=== PATIENT | male | born 1940 | race Caucasian/White ===

== ENCOUNTER → 2024-01-04 10:38 | Outpatient (REF) | payer OTHER, SELFPAY | LOC: RAD 10:38 | PROVIDERS: ATTENDING PHYSICIAN Internal Medicine Cardiovascular Disease; FAMILY PHYSICIAN Internal Medicine | DX: I25.810 Atherosclerosis of coronary artery bypass graft(s) without angina pectoris (principal); I48.0 Paroxysmal atrial fibrillation; I35.0 Nonrheumatic aortic (valve) stenosis; I10 Essential (primary) hypertension | CPT/HCPCS: 93880 ==

== ENCOUNTER → 2024-02-15 08:51 | Outpatient (REF) | payer OTHER, SELFPAY ==
[2024-02-15 12:31] LABS: ALT (SGPT) 26 U/L (0-50); AST (SGOT) 31 U/L (17-59); Albumin 3.9 g/dl (3.5-5.0); Alkaline Phosphatase 117 U/L (38-126); Direct Bilirubin 0.3 mg/dl (0.0-0.4); Glucose 108 mg/dl (70-99); HDL Cholesterol 65 mg/dl; LDL Cholesterol, Calculated 37 mg/dl; Total Cholesterol 119 mg/dl (50-199); Total Protein 6.5 g/dl (6.3-8.2); Triglyceride 87 mg/dl (10-149); Very Low Density Lipoprotein 17 mg/dl (0-30)
[2024-02-15 14:27] LABS: Glycohemoglobin (HgbA1c) 6.7 % (4.0-5.6)
== END ==
LOC: HWLAB 08:51
PROVIDERS: ATTENDING PHYSICIAN Internal Medicine
DX: E11.9 Type 2 diabetes mellitus without complications (principal); E78.5 Hyperlipidemia, unspecified; I10 Essential (primary) hypertension; I25.810 Atherosclerosis of coronary artery bypass graft(s) without angina pectoris
CPT/HCPCS: 36415; 80061; 80076; 82947; 83036

== ENCOUNTER 2024-05-05 10:58 | Emergency (ER) | payer OTHER, SELFPAY ==
[2024-05-05 11:00] VITALS: BP 155/77
[2024-05-05 11:06] VITALS: BMI 30.7
--- NOTE | 2024-05-05 11:13 | ED.GENMED ---
History of Present Illness
General
Chief Complaint: Back Pain
Source: patient and ambulance crew
Exam Limitations: none
Time Seen by Provider: 05/05/24 11:12
Nursing documentation reviewed up to this point in time: agreed with
History of Present Illness
History of Present Illness:
83 yo male from home where he lives alone. Here for lower back pain past 2 days. Worse than his usual back pain as he tried to get OOB this a.m. H States after laying on stomach on sofa and reaching under a table to spackle an area on his wall when
he developed low back pain that has become increasingly worse. Mostly R lower back
PCP Dr. Haider prescribed Methocarbamol, last dose 3 a.m. Takes Gabapentin 1200 mg BID also, last dose last p.m.
x back surgery 2007, laminectomy L4-5 2010, spinal fusion with scar tissue removal again 2010. More recently 'cyst removed from my spine' by Dr. Acuña.
Hx of Neuropathy legs, CHF, CAD, DVT, no longer on Eliquis, HTN, HLD, [place] CABG, BPH, anxiety
Past History
Past History
ED Past Medical History: CAD, CHF, HTN, Hypercholesterolemia, TN, Psychiatric (Anxiety), Other (Neuropathy LEs, ), Other (BPH) and Other (chronic back pain)
ED Past Surgical History: Cardiac (CABG Triple bypass 12/07) and Orthopedic (back surgery)
Social History
Tobacco: Non-smoker
Alcohol: None
Drug: None
Personal:
Living: with family
Family History
Family History: Negative Early CAD
Review of Systems
Review of Systems
Allergies reviewed?: Yes
All Other Systems: ROS reviewed and negative except as documented in HPI and ROS
Constitutional: Denies fever
Respiratory: Denies trouble breathing
Cardiac: Denies chest pain
ABD/GI: Denies abdominal pain, nausea, diarrhea or constipated (had a normal BM today)
: Denies dysuria
Musculoskeletal: Reports back pain; Denies neck pain
Skin: Reports no symptoms
Neurological: Reports no symptoms
Phy Exam
Physical Exam
Physical Exam:
GENERAL: No acute distress. A&Ox3.
CONSTITUTIONAL: Afebrile.
EYES: clear, conjunctivae normal
ENMT: moist mucus membranes, Pharynx nl
RESPIRATORY: Regular respirations, nonlabored, lungs clear.
CARDIOVASCULAR: Regular rate and rhythm, + murmur, no rubs. Pedal pulses 2/4.
GI: Soft, nontender, normal BS
MUSCULOSKELETAL: Tender to palpate bilateral para lumbar areas, no spinal bony tenderness. Flexes each knee without aggravating back pain. SLR without aggravating back pain. Pain elicited when pt position from flat supine to raising back of
stretcher more than 45 degrees, mainly in right lower back. Moves with ease. Well perfused. Trace ankle edema.
SKIN: Warm, dry, pink
PSYCH: Normal mood and affect. Well kept, interactive and appropriate
NEUROLOGIC: Awake, alert and oriented. No focal neurological deficits. Strength 5/5 throughout.
Course
Orders/Labs/Results
Orders:
Orders
05/05/24 11:21
Complete Blood Count/With Diff Urgent
Comprehensive Metabolic Panel Urgent
05/05/24 11:26
Ketorolac [Toradol] 15 mg IV NOW STA
05/05/24 11:27
diazePAM [Valium Injection] 2 mg IV NOW STA
Lumbar Spine Complete, 4 View [CR Lumbar Spine Comp Min 4 Vw*] Urgent
Comment:
Reason For Exam: pain mid to R lower back
05/05/24 13:07
Dexamethasone Sod Phosphate [Decadron] 10 mg IV NOW STA
Abnormal Lab Results
05/05/24
11:21
RBC 4.15 L 10^6/uL
(4.70-6.10)
MCV 97.3 H fL
(80.0-94.0)
MCH 35.4 H pg
(27.0-31.0)
Absolute Lymphs (auto) 0.5 L 10^3/uL
(1.2-3.4)
Absolute Monos (auto) 1.0 H 10^3/uL
(0.1-0.6)
Neutrophils % 80.7 H %
(42.2-75.2)
Lymphocytes % 6.2 L %
(20.5-51.1)
Monocytes % 12.6 H %
(1.7-9.3)
Sodium 131 L mmol/L
(135-145)
Chloride 97 L mmol/L
(98-107)
BUN 21 H mg/dl
(9-20)
Glucose 167 H mg/dl
(70-99)
Total Bilirubin 3.1 H mg/dl
(0.2-1.3)
05/05/24 11:21
05/05/24 11:21
Vital Signs
Initial and Last Documented VS:
Initial Vital Signs
Temp Pulse Resp BP Pulse Ox
98.1 F 93 18 155/77 96
05/05/24 11:00 05/05/24 11:00 05/05/24 11:00 05/05/24 11:00 05/05/24 11:00
Last Documented Vital Signs
Temp Pulse Resp BP Pulse Ox
98.1 F 72 18 140/83 97
05/05/24 11:00 05/05/24 14:00 05/05/24 14:00 05/05/24 14:00 05/05/24 14:00
MDM/Problems Addressed
Differential Diagnosis Includes:
Low back strain
MDM/Problems Addressed:
83 yo male from home where he lives alone. Here for lower back pain past 2 days. Worse than his usual back pain as he tried to get OOB this a.m. States after laying on stomach on sofa and reaching under a table to spackle an area on his wall when
he developed low back pain that has become increasingly worse. Mostly R lower back
PCP Dr. Haider prescribed Methocarbamol, last dose 3 a.m. Takes Gabapentin 1200 mg BID also, last dose last p.m.
x back surgery 2007, laminectomy L4-5 2010, spinal fusion with scar tissue removal again 2010. More recently 'cyst removed from my spine' by Dr. Acuña
Hx of Neuropathy legs, CHF, CAD, DVT, no longer on Eliquis, HTN, HLD, [place] CABG, BPH, anxiety
Afebrile, NAD. Wearing back brace from home
1:00 PM:
Lumbar spine radiology report read: IMPRESSION:
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 There is intervertebral disc space narrowing and facet arthropathy throughout the lumbar spine, most pronounced at L1-L2 and L2-L3, where it is severe.
After Valium, Toradol and Decadron, patient out of bed and ambulating very well with his walker and even independently at times. Most of his pain is when he goes from sit to stand and vice versa.
He will follow-up with Dr. Acuña
Prescription for prednisone sent to his pharmacy
He does have tramadol at home to use if needed for pain
No sign of infection, no cauda equina.
Pt comfortable going home with son in law, son to come and stay with him for a couple of days
Chronic conditions affecting care: HTN, CAD and Other (chronic low back pain, previous low back surgery)
*Critical Care Note
Total Time (30-74mins, 75-104mins- exclusive of procedures): Not Applicable
ED Attending Note
-
Portions of this chart may have been created with voice recognition software.� Occasional wrong word or��sound alike� substitutions may have occurred due to the inherent limitations of voice recognition software.
Discharge Plan
Departure
Patient Disposition: Home (Routine Discharge)
Date of Disposition: 05/05/24
Time of Disposition: 13:59
Patient with high blood pressure during this ER visit?: No
Condition: Good
Discharge Problem:
Low back pain
Instructions: Low Back Pain (DC)
Prescriptions:
New
prednisone 20 mg tablet
40 mg PO DAILY Qty: 8 0RF
No Action
lorazepam 1 MG tablet
1 mg PO HS
Patient Comments:
12/03/2020: last filled 11/14/20, 180 tabs for 90 days from [facility]
aspirin 81 MG tablet,chewable
81 mg PO DAILY
L.acidoph, paracasei,B. lactis 1 EACH capsule
1 ea PO DAILY
tramadol 50 MG tablet
50 mg PO Q6HPRN PRN (Reason: moderate pain)
Patient Comments:
12/03/2020: last filled 09/23/20, 180 tabs for 30 days from [facility]
gabapentin 300 MG capsule
1,200 mg PO BID
ipratropium bromide 1 SPRAY spray,non-aerosol
1 spray intranasal HS
finasteride 5 MG tablet
5 mg PO DAILY
atorvastatin 80 MG tablet
80 mg PO QPM Qty: 30 2RF
acetaminophen 325 MG tablet
650 mg PO Q4HPRN PRN (Reason: mild pain,headache,temp >101F ) 0RF
metoprolol tartrate 12.5 MG tablet
12.5 mg PO BID Qty: 60 2RF
Referrals:
Gary Acuña MD [Active] - Next open appointment
UNKNOWN - PT NOT,INTERVIEWE [Unknown Provider] -
Activity Restrictions/Additional Instructions:
As we discussed, you may use Tylenol as well as your tramadol as needed for pain.
I sent a prescription to your pharmacy for prednisone, started tomorrow as you were given a dose of steroid here today
The steroids may take a day or 2 to kick in so you may not feel much relief couple days.
Call Dr. Acuña's office Tuesday morning and make next available appointment
Interventions
Interventions:
*Risk Screen - Suicide Last Done: 05/05/24 11:08
*General Assessment Last Done: 05/05/24 11:07
*Neglect/Abuse Screening Last Done: 05/05/24 11:08
ED- Fall Risk Assessment Last Done: 05/05/24 11:05
*ED COVID-19 Vaccine History Last Done: 05/05/24 11:07
*Nursing Disposition Last Done: 05/05/24 14:25
ED-Musculoskeletal Assessment Last Done: 05/05/24 11:05
Discharge Date and Time
Discharge Date/Time: 05/05/24 14:25
Print Language: VINCENTIAN
[2024-05-05 11:29] LABS: % Basophils 0.1 % (0-2); % Immature Granulocytes 0.4 % (0-0.5); % Lymphocytes 6.2 % (20.5-51.1); % Monocytes 12.6 % (1.7-9.3); % Neutrophils 80.7 % (42.2-75.2); Absolute Lymphocytes 0.5 10^3/uL (1.2-3.4); Absolute Neutrophils 6.4 10^3/uL (1.4-6.5); Hematocrit 40.4 % (39.0-52.0); Hemoglobin 14.7 g/dL (13.0-18.0); Mean Corp Hgb Conc. 36.4 g/dL (33.0-37.0); Mean Corpuscular Hgb 35.4 pg (27.0-31.0); Mean Corpuscular Volume 97.3 fL (80.0-94.0); Mean Platelet Volume 9.8 fL (7.4-10.4); Nucleated Red Blood Cells % 0 % (-); Platelet Count 161 10^3/uL (130-400); Red Blood Cell Count 4.15 10^6/uL (4.70-6.10); Red Cell Dist. Width 12.5 % (11.5-14.5); White Blood Cell Count 7.9 10^3/uL (4.8-10.8)
[2024-05-05] MEDS: TORADOL 15 MG IV (11:31)
[2024-05-05] MEDS: VALIUM INJECTION 2 MG IV (11:32)
[2024-05-05 11:47] LABS: ALT (SGPT) 26 U/L (0-50); AST (SGOT) 28 U/L (17-59); Albumin 4.1 g/dl (3.5-5.0); Alkaline Phosphatase 124 U/L (38-126); Blood Urea Nitrogen 21 mg/dl (9-20); Calcium 9.8 mg/dl (8.4-10.2); Carbon Dioxide 24 mmol/L (22-30); Chloride 97 mmol/L (98-107); Estimated Creatinine Clearance 92 ml/min; Glucose 167 mg/dl (70-99); Potassium 3.9 mmol/L (3.5-5.1); Sodium 131 mmol/L (135-145); Total Bilirubin 3.1 mg/dl (0.2-1.3); Total Protein 6.6 g/dl (6.3-8.2); eGFR > 60.00
[2024-05-05 12:00] VITALS: BP 143/74
[2024-05-05] MEDS: DECADRON 10 MG IV (13:20)
[2024-05-05 14:00] VITALS: BP 140/83
== END 2024-05-05 14:25 | disposition home or self-care (01) ==
LOC: EMR 10:58
PROVIDERS: Registered Nurse; EMERGENCY PHYSICIAN Emergency Medicine; FAMILY PHYSICIAN Internal Medicine
DX: M54.50 Low back pain, unspecified (principal); G62.9 Polyneuropathy, unspecified; I25.10 Atherosclerotic heart disease of native coronary artery without angina pectoris; M47.816 Spondylosis without myelopathy or radiculopathy, lumbar region; M48.061 Spinal stenosis, lumbar region without neurogenic claudication; I11.0 Hypertensive heart disease with heart failure; I50.9 Heart failure, unspecified; E78.00 Pure hypercholesterolemia, unspecified; N40.0 Benign prostatic hyperplasia without lower urinary tract symptoms; F41.9 Anxiety disorder, unspecified; G89.29 Other chronic pain; Z95.1 Presence of aortocoronary bypass graft; Z85.828 Personal history of other malignant neoplasm of skin; Z86.718 Personal history of other venous thrombosis and embolism; Z98.1 Arthrodesis status
CPT/HCPCS: 99284; 96374; 96375 ×2; 72110; 80053; 85025

== ENCOUNTER → 2024-05-29 09:14 | Outpatient (REF) | payer OTHER, SELFPAY ==
[2024-05-29 11:46] LABS: ALT (SGPT) 24 U/L (0-50); AST (SGOT) 28 U/L (17-59); Albumin 3.7 g/dl (3.5-5.0); Alkaline Phosphatase 128 U/L (38-126); Blood Urea Nitrogen 22 mg/dl (9-20); Calcium 9.4 mg/dl (8.4-10.2); Carbon Dioxide 27 mmol/L (22-30); Chloride 104 mmol/L (98-107); Glucose 122 mg/dl (70-99); HDL Cholesterol 56 mg/dl; LDL Cholesterol, Calculated 48 mg/dl; Potassium 4.1 mmol/L (3.5-5.1); Sodium 142 mmol/L (135-145); Total Bilirubin 1.1 mg/dl (0.2-1.3); Total Cholesterol 124 mg/dl (50-199); Total Protein 6.2 g/dl (6.3-8.2); Triglyceride 102 mg/dl (10-149); Very Low Density Lipoprotein 20 mg/dl (0-30); eGFR > 60.00
[2024-05-29 11:52] LABS: % Basophils 0.9 % (0-2); % Eosinophils 3.9 % (0-6); % Immature Granulocytes 0.6 % (0-0.5); % Lymphocytes 20.8 % (20.5-51.1); % Monocytes 14.2 % (1.7-9.3); % Neutrophils 59.6 % (42.2-75.2); Absolute Eosinophils 0.1 10^3/uL (0-0.7); Absolute Lymphocytes 0.7 10^3/uL (1.2-3.4); Absolute Monocytes 0.5 10^3/uL (0.1-0.6); Hematocrit 39.8 % (39.0-52.0); Hemoglobin 13.9 g/dL (13.0-18.0); Mean Corp Hgb Conc. 34.9 g/dL (33.0-37.0); Mean Corpuscular Hgb 33.6 pg (27.0-31.0); Mean Corpuscular Volume 96.1 fL (80.0-94.0); Mean Platelet Volume 10.2 fL (7.4-10.4); Nucleated Red Blood Cells % 0 % (-); Platelet Count 178 10^3/uL (130-400); Red Blood Cell Count 4.14 10^6/uL (4.70-6.10); Red Cell Dist. Width 12.9 % (11.5-14.5); White Blood Cell Count 3.3 10^3/uL (4.8-10.8)
[2024-05-29 14:02] LABS: Glycohemoglobin (HgbA1c) 6.7 % (4.0-5.6)
== END ==
LOC: HWLAB 09:14
PROVIDERS: ATTENDING PHYSICIAN Internal Medicine
DX: E11.9 Type 2 diabetes mellitus without complications (principal); E78.5 Hyperlipidemia, unspecified
CPT/HCPCS: 36415; 80053; 80061; 83036; 85025

== ENCOUNTER → 2024-08-14 13:39 | Outpatient (REF) | payer OTHER, SELFPAY | LOC: HWRCS 13:39 | PROVIDERS: ATTENDING PHYSICIAN Internal Medicine Cardiovascular Disease; FAMILY PHYSICIAN Internal Medicine | DX: I35.0 Nonrheumatic aortic (valve) stenosis (principal) | CPT/HCPCS: 93306 ==

== ENCOUNTER → 2024-10-12 09:36 | Outpatient (REF) | payer OTHER, SELFPAY ==
[2024-10-12 12:40] LABS: ALT (SGPT) 25 U/L (0-50); AST (SGOT) 26 U/L (17-59); Albumin 3.7 g/dl (3.5-5.0); Alkaline Phosphatase 123 U/L (38-126); Direct Bilirubin 0.1 mg/dl (0.0-0.4); Glucose 119 mg/dl (70-99); HDL Cholesterol 57 mg/dl; LDL Cholesterol, Calculated 42 mg/dl; Total Bilirubin 1.2 mg/dl (0.2-1.3); Total Cholesterol 127 mg/dl (50-199); Total Protein 6.2 g/dl (6.3-8.2); Triglyceride 141 mg/dl (10-149); Very Low Density Lipoprotein 28 mg/dl (0-30)
[2024-10-12 12:55] LABS: Glycohemoglobin (HgbA1c) 6.3 % (4.0-5.6)
== END ==
LOC: HWLAB 09:36
PROVIDERS: ATTENDING PHYSICIAN Internal Medicine
DX: E11.9 Type 2 diabetes mellitus without complications (principal)
CPT/HCPCS: 36415; 80061; 80076; 82947; 83036

== ENCOUNTER → 2025-02-13 07:28 | Outpatient (REF) | payer OTHER, SELFPAY ==
[2025-02-13 10:09] LABS: Glycohemoglobin (HgbA1c) 6.3 % (4.0-5.6)
[2025-02-13 10:14] LABS: ALT (SGPT) 28 U/L (0-50); AST (SGOT) 29 U/L (17-59); Albumin 4.1 g/dl (3.5-5.0); Alkaline Phosphatase 110 U/L (38-126); Direct Bilirubin 0.1 mg/dl (0.0-0.4); Glucose 126 mg/dl (70-99); HDL Cholesterol 64 mg/dl; LDL Cholesterol, Calculated 55 mg/dl; Total Bilirubin 1.3 mg/dl (0.2-1.3); Total Cholesterol 145 mg/dl (50-199); Total Protein 6.7 g/dl (6.3-8.2); Triglyceride 134 mg/dl (10-149); Very Low Density Lipoprotein 26 mg/dl (0-30)
== END ==
LOC: HWLAB 07:28
PROVIDERS: ATTENDING PHYSICIAN Internal Medicine
DX: E11.9 Type 2 diabetes mellitus without complications (principal)
CPT/HCPCS: 36415; 80061; 80076; 82947; 83036

== ENCOUNTER → 2025-04-17 11:14 | Outpatient (REF) | payer OTHER, SELFPAY | LOC: HWRCS 11:14 | PROVIDERS: ATTENDING PHYSICIAN Internal Medicine Cardiovascular Disease; FAMILY PHYSICIAN Internal Medicine | DX: I25.810 Atherosclerosis of coronary artery bypass graft(s) without angina pectoris (principal); I35.0 Nonrheumatic aortic (valve) stenosis; I10 Essential (primary) hypertension; R09.89 Other specified symptoms and signs involving the circulatory and respiratory systems | CPT/HCPCS: 93306 ==

== ENCOUNTER → 2025-07-05 08:51 | Outpatient (REF) | payer OTHER, SELFPAY ==
[2025-07-05 10:50] LABS: Glycohemoglobin (HgbA1c) 6.6 % (4.0-5.6)
[2025-07-05 10:55] LABS: ALT (SGPT) 26 U/L (0-50); AST (SGOT) 25 U/L (17-59); Albumin 4.2 g/dl (3.5-5.0); Alkaline Phosphatase 121 U/L (38-126); Glucose 146 mg/dl (70-99); HDL Cholesterol 68 mg/dl; LDL Cholesterol, Calculated 48 mg/dl; Total Protein 6.8 g/dl (6.3-8.2); Very Low Density Lipoprotein 28 mg/dl (0-30)
== END ==
LOC: HWLAB 08:51
PROVIDERS: ATTENDING PHYSICIAN Internal Medicine
DX: E11.9 Type 2 diabetes mellitus without complications (principal); E66.9 Obesity, unspecified; E78.5 Hyperlipidemia, unspecified; I10 Essential (primary) hypertension
CPT/HCPCS: 36415; 80061; 80076; 82947; 83036

== ENCOUNTER → 2025-08-08 11:04 | Outpatient (REF) | payer OTHER, SELFPAY ==
[2025-08-08 12:54] LABS: Hematocrit 42.3 % (39.0-52.0); Hemoglobin 14.3 g/dL (13.0-18.0); Mean Corp Hgb Conc. 33.8 g/dL (33.0-37.0); Mean Corpuscular Volume 100.2 fL (80.0-94.0); Nucleated Red Blood Cells % 0 % (-); Platelet Count 217 10^3/uL (130-400); Red Cell Dist. Width 13.1 % (11.5-14.5)
[2025-08-08 13:16] LABS: Albumin 3.9 g/dl (3.5-5.0); Blood Urea Nitrogen 23 mg/dl (9-20); Calcium 9.5 mg/dl (8.4-10.2); Carbon Dioxide 30 mmol/L (22-30); Chloride 103 mmol/L (98-107); Glucose 119 mg/dl (70-99); Potassium 4.3 mmol/L (3.5-5.1); Sodium 138 mmol/L (135-145); eGFR > 60.00
== END ==
LOC: HWLAB 11:04
PROVIDERS: ATTENDING PHYSICIAN Internal Medicine Cardiovascular Disease; FAMILY PHYSICIAN Internal Medicine
DX: I48.0 Paroxysmal atrial fibrillation (principal); I25.810 Atherosclerosis of coronary artery bypass graft(s) without angina pectoris; I35.0 Nonrheumatic aortic (valve) stenosis; E78.00 Pure hypercholesterolemia, unspecified; I10 Essential (primary) hypertension
CPT/HCPCS: 36415; 80069; 85025

== ENCOUNTER → 2025-08-16 09:03 | Outpatient (REF) | payer OTHER, SELFPAY | LOC: RAD 09:03 | PROVIDERS: ATTENDING PHYSICIAN Internal Medicine Cardiovascular Disease; FAMILY PHYSICIAN Internal Medicine | DX: I35.0 Nonrheumatic aortic (valve) stenosis (principal) | CPT/HCPCS: 74174; 75572; Q9967 ==

== ENCOUNTER → 2025-08-22 13:38 | Outpatient (REF) | payer OTHER, SELFPAY | LOC: RAD 13:38 | PROVIDERS: ATTENDING PHYSICIAN Internal Medicine | DX: M79.604 Pain in right leg (principal) | CPT/HCPCS: 93922; 93925 ==

== ENCOUNTER 2025-08-27 07:29 | Day surgery (SDC) | payer OTHER, SELFPAY ==
[2025-08-27] VITALS (14 sets, daily range): BP systolic 149–199; BP diastolic 72–95; BMI 34.4
[2025-08-27] MEDS: NSS 299 ML IV (08:36)
[2025-08-27] MEDS: LOW STRENGTH ASPIRIN 81 MG PO (08:37)
--- NOTE | 2025-08-27 11:19 | ITS.CL.PN ---
[employer] - Procedure Note
Procedure
Procedure Note:
CARDIAC CATHETERIZATION REPORT
Date of Procedure: 08/27/2025
Referring: Dr. Shelton Mckeon MD
Indication: preoperative evaluation for AVR, symptomatic severe aortic valve stenosis
PROCEDURE(S)
1. right heart catheterization
2. left heart catheterization
3. coronary angiography
ACCESS
1. 6F right radial artery (closure: radial band)
2. 5F right antecubital vein (closure: manual hemostasis)
CATHETERS
1. 5F [place]
2. 6F YONI
3. 6F JR4
4. 6F JL4
5. 6F AL1
MODERATE SEDATION: 45 minutes of moderate sedation was utilized. An independent remote medical coder was present to assist with and help manage the patient's level of consciousness and physiologic status.
HEMODYNAMIC DATA
AO 150/73 (mean 103) mmHg
RA 8 mmHg
RV 46/4 (EDP 11) mmHg
PA 46/17 (mean 29) mmHg
PCWP 15 mmHg
SaO2 90.8%
SvO2 69.8%
Hb 14.1 g/dL
CO/CI 6.52/3.10 L/min/m2
SVR 1166 dsc*-5
PVR 2.1 [place] units
CORONARY ANGIOGRAPHY
Dominance: Right
LM: large with severe calcific 70% distal stenosis.
LAD: gives rise to a large ramus/D1, moderate caliber D2, and small D3. The CARPENTER fills the mid-distal LAD back to the D2 with excellent runoff. There is an ostial aneurysmal segment in the ramus/D1 which fills antegrade with brisk flow. There is
diffuse mild disease throughout the LAD system.
LCx: gives rise to a small OM1, totally occluded OM2, and large branching LPL system. The large branch of the LPL fills via the SVG with excellent runoff.
RCA: The vessel is totally occluded proximally and gives rise to a moderate-caliber RPDA and small RPL which fill via the SVG with excellent runoff.
BYPASS GRAFT ANGIOGRAPHY:
CARPENTER-LAD: the CARPENTER is taken as a pedicle and forms an anastomosis with the mid-LAD.
SVG-RPDA-OM: forms a patent anastomosis with the RPDA followed by the OM2.
RADIATION: dose 545 mGy; DAP 39.7 Gy*cm2; fluoroscopy time 18.4 min
CONCLUSIONS
1. Coronary artery disease as described status post bypass with patent grafts.
2. Mildly elevated biventricular filling pressures and normal cardiac output.
RECOMMENDATIONS
1. Proceed with TAVR
2. Secondary prevention of coronary artery disease
Copy to: Dr. Shelton Mckeon MD (ctc operator); Dr. Jogre Us MD (PCP)
Signed: Angus Elena MD, PhD
--- NOTE | 2025-08-27 12:42 | PTCARENOTE ---
notified [employer] Keysha Grossman re pts elevated systolic [id number]. discussed w mail sorter and delivery how pt did not take his morning metoprolol. [employer] states this is ok and no treatment at this time.
== END 2025-08-27 13:50 | disposition home or self-care (01) ==
LOC: CATH 07:29
PROVIDERS: ATTENDING PHYSICIAN Student in an Organized Health Care Education/Training Program; FAMILY PHYSICIAN Internal Medicine; OTHER PHYSICIAN Internal Medicine Cardiovascular Disease
DX: I35.0 Nonrheumatic aortic (valve) stenosis (principal); I25.10 Atherosclerotic heart disease of native coronary artery without angina pectoris; I48.0 Paroxysmal atrial fibrillation; I10 Essential (primary) hypertension; Z79.82 Long term (current) use of aspirin; Z95.1 Presence of aortocoronary bypass graft
CPT/HCPCS: 93457; 99152; 99153; C1769; C1894; Q9967